=== PATIENT | male | born 1935 | race Caucasian/White ===

== ENCOUNTER 2017-07-13 16:01 | Emergency (ER) | payer MEDICARE, OTHER ==
[~2017-07-13] VITALS: Ht 177.8 cm; Wt 86.0 kg
[2017-07-13 16:14] LABS: HEMATOCRIT 47.1 % (39.2-51.8); HEMOGLOBIN 15.5 g/dL (13.7-18.0); WHITE BLOOD COUNT 10.7 x10^3/uL (3.4-10)
[2017-07-13 16:26] LABS: ASPARTATE AMINO TRANSFERASE 25 U/L (15-37); BLOOD UREA NITROGEN 26 mg/dL (7-18)
[2017-07-13] MEDS ORDERED: ALBU2.5V11 NEB (16:26)
[2017-07-13] MEDS ORDERED: BLOOD PRESSURE MED (16:26)
[2017-07-13] MEDS ORDERED: SODIUM CHLORIDE FLUSH 10ML SYR IVF ONE (16:30)
[2017-07-13] MEDS ORDERED: PLEASE ENTER ALLERGIES MC SCH ×2 (16:30)
[2017-07-13] MEDS ORDERED: ONDANSETRON 2MG/ML, 2ML IVPush ONE (16:30)
[2017-07-13] MEDS ORDERED: SODIUM CHLORIDE 0.9% 1,000ML IVBOLUS ONE ×2 (16:30)
[2017-07-13 16:31] LABS: IS PT STATUS REG ER OR PRE ER? YES
[2017-07-13 17:15] VITALS: BP 114/53
== END 2017-07-13 17:47 | disposition home or self-care (01) ==
LOC: ED 17:32
DX: R55 Syncope and collapse (principal); I95.0 Idiopathic hypotension; F10.120 Alcohol abuse with intoxication, uncomplicated; J44.9 Chronic obstructive pulmonary disease, unspecified
CPT/HCPCS: 36415; 71010; 80047; 80053; 80307; 83880; 84436; 84443; 84484; 85025; 85610; 85730; 93005; 96360; 99285; J7030

== ENCOUNTER → 2019-11-10 | Outpatient (CLI) | payer MEDICARE ==
[~2019-11-10] MED LIST: ALBU2.5V11 NEB; ALBU8.5H8 INH; BLOOD PRESSURE MED; DOXY100T PO; FINA5TAB4 PO; LOSA1TAB19 PO; METF500T17 PO; METH4TAB2 PO; TAMS-11 PO; TIOT4MIS3 IH; TIOT4MIS3 INH
== END | disposition home or self-care (01) ==
LOC: CFH 09:39
PROVIDERS: ATTEND Registered Nurse
DX: I71.2 Thoracic aortic aneurysm, without rupture (principal); J43.2 Centrilobular emphysema; I51.7 Cardiomegaly; M47.9 Spondylosis, unspecified
CPT/HCPCS: 71250

== ENCOUNTER 2020-04-01 09:20 | Emergency (ER) | payer MEDICARE ==
--- NOTE | 2020-04-01 09:27 | NUR ---
ekg in triage
--- NOTE | 2020-04-01 09:31 | NUR ---
[facility] [phone]
--- NOTE | 2020-04-01 10:00 | NUR ---
PT HAS CO SOB WORSENING THIS AM. DENIES CP. SLIGHT DRY COUGH. DENIES FEVERS. PT HX OF COPD. HOME 02 3L. CUSTOMER ORDER CLERK APPLIED. PT NOT IN RESP DISTRESS
[2020-04-01 10:43] LABS: MEAN CORPUSCULAR HEMOGLOBIN 30.8 pg (27.5-34.5); MEAN CORPUSCULAR HGB CONC 32.5 g/dL (33.2-36.2); MEAN CORPUSCULAR VOLUME 94.6 fL (81-97); MEAN PLATELET VOLUME 8.5 fL (7.4-10.4); PLATELET COUNT 255 x10^3/uL (130-400); RED BLOOD COUNT 4.35 x10^6/uL (4.38-5.82); RED CELL DISTRIBUTION WIDTH 14.2 % (9.4-14.8)
[2020-04-01 10:52] LABS: ALBUMIN 3.5 g/dL (3.4-5.0); ANION GAP 3 mmol/L (5-15); CALCIUM 9.6 mg/dL (8.5-10.1); CHLORIDE 108 mmol/L (98-107); CREATININE 1.22 mg/dL (0.7-1.3)
[2020-04-01 10:55] LABS: TROPONIN I 0.034 ng/mL (0.000-0.045)
[2020-04-01] MEDS ORDERED: ALBUTEROL/IPRATROPIUM 2.5MG/0.5MG, 3 ML NPPB ONE (11:00)
--- NOTE | 2020-04-01 11:00 | NUR ---
PT RESTING. VSS. LABS COMPLETE.
[2020-04-01 11:02] LABS: BASOPHILS # (AUTO) 0.01 x10^3/uL (0-0.1); BASOPHILS % (AUTO) 0 % (0-1); EOSINOPHILS # (AUTO) 0.02 x10^3/uL (0-0.4); EOSINOPHILS % (AUTO) 0 % (1-7); LYMPHOCYTES # (AUTO) 0.87 x10^3/uL (1-3.4); LYMPHOCYTES % (AUTO) 5 % (22-44); MD SCAN; MONOCYTES % (AUTO) 5 % (2-9); NEUTROPHILS # (AUTO) 17.23 x10^3/uL (1.8-6.8); NEUTROPHILS % (AUTO) 90 % (42-75)
[2020-04-01] MEDS ORDERED: ALBUTEROL/IPRATROPIUM 2.5MG/0.5MG, 3 ML ONE ×2 (11:06→11:51)
[2020-04-01 12:06] VITALS: BP 100/55
--- NOTE | 2020-04-01 12:09 | NUR ---
BREATHING TREATMENT IN PROCESS. VSS
--- NOTE | 2020-04-01 12:23 | NUR ---
Patient/Caregiver given discharge instructions and they have confirmed that they understand the instructions. Patient ambulatory with steady gait.
== END 2020-04-01 12:26 | disposition home or self-care (01) ==
LOC: ED 12:20
DX: J44.1 Chronic obstructive pulmonary disease with (acute) exacerbation (principal); Z20.828 Contact with and (suspected) exposure to other viral communicable diseases; R00.0 Tachycardia, unspecified; I10 Essential (primary) hypertension; R05 Cough; R09.81 Nasal congestion; Z87.891 Personal history of nicotine dependence
CPT/HCPCS: 36415; 71045; 80048; 82040; 83605; 83880; 84145; 84484; 85025; 87040; 93005; 99285; J7512; U0001

== ENCOUNTER → 2021-05-08 | Outpatient (CLI) | payer MEDICARE | END | disposition home or self-care (01) | LOC: CVU 10:34 | PROVIDERS: ATTEND Internal Medicine | DX: I06.2 Rheumatic aortic stenosis with insufficiency (principal); I11.9 Hypertensive heart disease without heart failure; E78.5 Hyperlipidemia, unspecified; I71.4 Abdominal aortic aneurysm, without rupture; J44.9 Chronic obstructive pulmonary disease, unspecified | CPT/HCPCS: 93306; 93356 ==

== ENCOUNTER 2021-06-04 09:31 | Outpatient (CLI) | payer MEDICARE ==
[2021-06-04] MEDS ORDERED: OMNIPAQUE 350 MG/ML, 100ML BOTTLE ONE (10:37)
== END 2021-06-04 23:59 | disposition home or self-care (01) ==
LOC: CVU 09:31 → RAD 23:59
PROVIDERS: ATTEND Internal Medicine Cardiovascular Disease
DX: Z01.810 Encounter for preprocedural cardiovascular examination (principal); I65.23 Occlusion and stenosis of bilateral carotid arteries; R06.02 Shortness of breath; I35.0 Nonrheumatic aortic (valve) stenosis; I35.8 Other nonrheumatic aortic valve disorders; J43.2 Centrilobular emphysema; M51.36 Other intervertebral disc degeneration, lumbar region
CPT/HCPCS: 71275; 74174; 93880; Q9967

== ENCOUNTER 2021-06-25 06:11 | Day surgery (SDC) | payer MEDICARE ==
[~2021-06-25] VITALS: Ht 177.8 cm; Wt 77.4 kg
[2021-06-25] MEDS ORDERED: trelegy INH (07:14)
[2021-06-25] MEDS ORDERED: vitamin d3 PO (07:14)
[2021-06-25] MEDS ORDERED: albuterol inhaler INH (07:14)
[2021-06-25] MEDS ORDERED: TIZA4CAP PO (07:14)
[2021-06-25] MEDS ORDERED: LOSA100T14 PO (07:14)
[2021-06-25] MEDS ORDERED: FINA5TAB4 PO (07:14)
[2021-06-25] MEDS ORDERED: ATOR40TA78 PO (07:14)
[2021-06-25 07:16] VITALS: BP 158/75
[2021-06-25] MEDS ORDERED: SODIUM CHLORIDE 0.9% 1,000 ML IV SCH (07:30)
[2021-06-25] MEDS ORDERED: FLUMAZENIL 0.1 MG/1 ML, 5ML ONE (08:23)
[2021-06-25] MEDS ORDERED: FENTANYL PF 100 MCG/2ML ONE (08:23)
[2021-06-25] MEDS ORDERED: MIDAZOLAM 1 MG/ML, 5ML ONE (08:23)
[2021-06-25] MEDS ORDERED: NALOXONE 1 MG/ML, 2ML ONE (08:24)
== END 2021-06-25 12:57 | disposition home or self-care (01) ==
LOC: OUT 06:11 → EDSTATUS 08:00 → OUT 12:57
PROVIDERS: ATTEND Internal Medicine
DX: R91.8 Other nonspecific abnormal finding of lung field (principal); J84.10 Pulmonary fibrosis, unspecified; J98.11 Atelectasis; J44.9 Chronic obstructive pulmonary disease, unspecified; J96.11 Chronic respiratory failure with hypoxia; I35.0 Nonrheumatic aortic (valve) stenosis; I12.9 Hypertensive chronic kidney disease with stage 1 through stage 4 chronic kidney disease, or unspecified chronic kidney disease; N18.9 Chronic kidney disease, unspecified; Z79.899 Other long term (current) drug therapy; Z87.891 Personal history of nicotine dependence; Z99.81 Dependence on supplemental oxygen; Z81.1 Family history of alcohol abuse and dependence; Z82.3 Family history of stroke
CPT/HCPCS: 32408; 71045; 88305; 99156; 99157; C2613; J2250; J3010; J7030; 32400; 77012; J2310

== ENCOUNTER 2021-07-10 10:44 | Day surgery (SDC) | payer MEDICARE ==
[~2021-07-10] VITALS: Ht 177.8 cm; Wt 80.0 kg
[~2021-07-10 10:44] MED LIST changes: +ATOR40TA78 PO; +LOSA100T14 PO; +TIZA4CAP PO; +albuterol inhaler INH; +trelegy INH; +vitamin d3 PO
[2021-07-10] MEDS ORDERED: SODIUM CHLORIDE 0.9% 1,000 ML IV SCH ×2 (11:00→13:30)
[2021-07-10] MEDS ORDERED: MULT-658 PO (11:17)
[2021-07-10] MEDS ORDERED: LOSA100T14 PO (11:17)
[2021-07-10] MEDS ORDERED: FLUT1BLS3 IH (11:17)
[2021-07-10] MEDS ORDERED: TAMS-11 PO (11:17)
[2021-07-10] MEDS ORDERED: ATOR40TA PO (11:17)
[2021-07-10] MEDS ORDERED: ALBU90AE2 INH (11:17)
[2021-07-10] MEDS ORDERED: PLEASE ENTER HEIGHT AND WEIGHT MC SCH (11:30)
[2021-07-10 11:51] LABS: BASOPHILS % (AUTO) 1 % (0-1); EOSINOPHILS % (AUTO) 4 % (1-7); LYMPHOCYTES % (AUTO) 13 % (22-44); MEAN CORPUSCULAR HEMOGLOBIN 31.6 pg (27.5-34.5); MEAN CORPUSCULAR HGB CONC 33.2 g/dL (33.2-36.2); MONOCYTES % (AUTO) 8 % (2-9); NEUTROPHILS % (AUTO) 74 % (42-75); PLATELET COUNT 241 x10^3/uL (130-400); RED CELL DISTRIBUTION WIDTH 14.5 % (9.4-14.8)
[2021-07-10 12:00] LABS: ANION GAP 6 mmol/L (5-15); CALCIUM 10.6 mg/dL (8.5-10.1); CHLORIDE 105 mmol/L (98-107); CREATININE 1.08 mg/dL (0.7-1.3)
[2021-07-10] MEDS ORDERED: VERAPAMIL 2.5 MG/ML, 2ML ONE (12:00)
[2021-07-10] MEDS ORDERED: MIDAZOLAM 1 MG/ML, 5ML ONE (12:00)
[2021-07-10] MEDS ORDERED: FENTANYL PF 100 MCG/2ML ONE (12:00)
[2021-07-10] MEDS ORDERED: HEPARIN 1,000 UNITS/ML, 10ML ONE (12:01)
[2021-07-10] MEDS ORDERED: LIDOCAINE-MPF 1%, 5ML ONE (12:01)
[2021-07-10] MEDS ORDERED: NITROGLYCERIN 5 MG/ML, 10ML ONE (12:01)
== END 2021-07-10 15:50 | disposition home or self-care (01) ==
LOC: CACL 10:44
PROVIDERS: ATTEND Internal Medicine Cardiovascular Disease
DX: Z01.810 Encounter for preprocedural cardiovascular examination (principal); I35.0 Nonrheumatic aortic (valve) stenosis; I25.10 Atherosclerotic heart disease of native coronary artery without angina pectoris; I12.9 Hypertensive chronic kidney disease with stage 1 through stage 4 chronic kidney disease, or unspecified chronic kidney disease; N18.9 Chronic kidney disease, unspecified
CPT/HCPCS: 36415; 80048; 85025; 93454; 99156; C1769; C1894; J1644; J2250; J3010; Q9967

== ENCOUNTER 2021-07-11 16:22 | Inpatient (IN) | payer MEDICARE ==
[~2021-07-11] VITALS: Ht 177.8 cm; Wt 79.2 kg
[~2021-07-11 16:22] MED LIST changes: +ALBU90AE2 INH; +ATOR40TA PO; +FLUT1BLS3 IH; +MULT-658 PO
--- NOTE | 2021-07-11 16:30 | NUR ---
PT RAILS UP, CALL LIGHT WTHIN REACH. PT HOOKED UP TO MONITORING.
--- NOTE | 2021-07-11 16:30 | NUR ---
PT C/O SOB AND CALLED 911. 911 ON[facility]ENE DID A 12 LEAD EKG AND ACTIVATED A CODE STEMI DUE TO ST ELEVATION IN ANTERIOR LEADS. PT DENIES CP, N/V OR ALFARO . PT PIV BILATERAL FOREARMS, 18 GA. 324 ASA GIVEN CASER UP. PT ON 3 LPM VIA NC UPON ARRIVAL AND PT STATES HE IS ALWAYS ON O2 DUE TO COPD.
[2021-07-11] MEDS ORDERED: MIDAZOLAM 1 MG/ML, 2ML ONE (16:33)
[2021-07-11] MEDS ORDERED: BIVALIRUDIN 250 MG ONE (16:33)
[2021-07-11] MEDS ORDERED: LIDOCAINE 2%, 20ML ONE (16:33)
[2021-07-11] MEDS ORDERED: FENTANYL PF 100 MCG/2ML ONE (16:33)
[2021-07-11] MEDS ORDERED: NITROGLYCERIN 5 MG/ML, 10ML ONE (16:33)
[2021-07-11 16:41] LABS: MEAN CORPUSCULAR HEMOGLOBIN 31.2 pg (27.5-34.5); MEAN CORPUSCULAR HGB CONC 32.9 g/dL (33.2-36.2); MEAN PLATELET VOLUME 8.9 fL (7.4-10.4); PLATELET COUNT 218 x10^3/uL (130-400); RED BLOOD COUNT 3.77 x10^6/uL (4.38-5.82); RED CELL DISTRIBUTION WIDTH 14.1 % (9.4-14.8)
[2021-07-11 16:53] LABS: INTERNATIONAL NORMALIZED RATIO 1.1 (0.93-1.1); PROTHROMBIN TIME 11.7 Seconds (9.6-11.5)
[2021-07-11 16:58] LABS: TROPONIN I 0.065 ng/mL (0.000-0.045)
[2021-07-11 17:18] LABS: EOS#(MANUAL) 1.86 x10^3/uL (0.0-0.4); EOS% (MANUAL) 9 % (1-7); LYMPH#(MANUAL) 0.21 x10^3/uL (1-3.4); LYMPHS% (MANUAL) 1 % (22-44); MONOS#(MANUAL) 0.83 x10^3/uL (0.3-2.7); MONOS% (MANUAL) 4 % (2-9); REACTIVE LYMPHS # (MANUAL) 0.21 x10^3/uL (0-0); REACTIVE LYMPHS % (MANUAL) 1 % (0-0); SEGS% (MANUAL) 85 % (42-75)
[2021-07-11 17:19] LABS: <PLATELET ESTIMATE> ADEQUATE; <PLT MORPHOLOGY> NORMAL PLT MORPH; <RBC MORPHOLOGY> NORMAL
[2021-07-11] MEDS ORDERED: SODIUM CHLORIDE 0.9% 1,000ML IVBOLUS ONE (19:00)
--- NOTE | 2021-07-11 19:00 | NUR ---
Report from Jennifer ULRICH
[2021-07-11] MEDS ORDERED: SODIUM CHLORIDE FLUSH 10ML SYR IVF PRN (20:00)
[2021-07-11] MEDS ORDERED: CEFTRIAXONE 1,000 MG in DEXTROSE 5% 50 ML IVPB ONE (20:00)
--- NOTE | 2021-07-11 20:21 | NUR ---
Pt tolerated COVID swab well. Walked sample to LAB. Pt made aware of need for urine sample. VSS, WCTM
--- NOTE | 2021-07-11 20:24 | NUR ---
THROUGHPUT RN: [id number] TO REACH [facility] HOUSE SUP FOR PT TRANSFER ACCEPTANCE/DENIAL, CURRENTLY UNABLE TO REACH ANYONE AT THIS TIME
[2021-07-11] MEDS ORDERED: LORazepam 1MG TABLET PO PRN (21:30)
[2021-07-11] MEDS ORDERED: CEFTRIAXONE 1,000 MG in SODIUM CHLORIDE 0.9% 50 ML IVPB SCH (21:30)
[2021-07-11] MEDS ORDERED: GUAIFENESIN/DM 200-20MG, 10ML UDC PO PRN (21:30)
[2021-07-11] MEDS ORDERED: HEPARIN 5,000 UNITS/ML, 1ML ONE (22:06)
[2021-07-11] MEDS ORDERED: methylPREDNISolone SOD SUCC 40 MG/ML ONE (22:06)
[2021-07-11] MEDS: methylPREDNISolone SOD SUCC 40 MG/ML IVPush SCH (22:13)
[2021-07-11] MEDS: HEPARIN 5,000 UNITS/ML, 1ML SQ SCH (22:21)
[2021-07-11] MEDS ORDERED: AZITHROMYCIN 500 MG in SODIUM CHLORIDE 0.9% 250 ML IV SCH (22:30)
[2021-07-11 22:35] LABS: BASOPHILS % (AUTO) 0 % (0-1); EOSINOPHILS % (AUTO) 6 % (1-7); LYMPHOCYTES % (AUTO) 4 % (22-44); MEAN CORPUSCULAR HEMOGLOBIN 31.4 pg (27.5-34.5); MEAN CORPUSCULAR HGB CONC 32.7 g/dL (33.2-36.2); MEAN PLATELET VOLUME 9.1 fL (7.4-10.4); MONOCYTES % (AUTO) 7 % (2-9); NEUTROPHILS % (AUTO) 83 % (42-75); PLATELET COUNT 184 x10^3/uL (130-400); RED BLOOD COUNT 3.39 x10^6/uL (4.38-5.82); RED CELL DISTRIBUTION WIDTH 14.3 % (9.4-14.8)
--- NOTE | 2021-07-11 22:42 | NUR ---
Report to Jennifer ULRICH
[2021-07-11 22:53] LABS: ALBUMIN 2.9 g/dL (3.4-5.0); CALCIUM 8.8 mg/dL (8.5-10.1); CREATININE 1.32 mg/dL (0.7-1.3)
[2021-07-11 23:14] VITALS: BP 120/70
[2021-07-11 23:18] LABS: ALANINE AMINOTRANSFERASE 23 U/L (12-78); ALKALINE PHOSPHATASE 48 U/L (45-117); ANION GAP 5 mmol/L (5-15); BILIRUBIN,TOTAL 0.5 mg/dL (0.2-1.0); CHLORIDE 108 mmol/L (98-107); TOTAL PROTEIN 5.7 g/dL (6.4-8.2)
[2021-07-12 00:40] VITALS: BP 132/68
[2021-07-12] MEDS: methylPREDNISolone SOD SUCC 40 MG/ML IVPush SCH ×2 (04:59→08:41)
[2021-07-12] MEDS: HEPARIN 5,000 UNITS/ML, 1ML SQ SCH ×2 (05:29→13:02)
[2021-07-12 07:15] LABS: MICROSCOPIC NOT IND
[2021-07-12 07:55] VITALS: BP 139/62
[2021-07-12 08:10] LABS: TROPONIN I 0.016 ng/mL (0.000-0.045)
[2021-07-12] MEDS ORDERED: CEFTRIAXONE 1,000 MG in DEXTROSE 5% 50 ML IVPB SCH ×2 (08:29→21:30)
[2021-07-12] MEDS ORDERED: TAMSULOSIN 0.4 MG CAP.ER.24H PO SCH (09:00)
[2021-07-12] MEDS ORDERED: LOSARTAN 100 MG TAB PO SCH (09:00)
[2021-07-12] MEDS ORDERED: TEMPLATE NON-FORMULARY MED. (Fluticasone/Umeclidin/Vilanter (Trelegy Ellipta 100-62.5-25 IH SCH (09:00)
[2021-07-12] MEDS ORDERED: FLUTICASONE/VILANTEROL 200-25MCG/INH INH SCH (09:00)
[2021-07-12] MEDS ORDERED: PRED20TA PO (12:59)
[2021-07-12 13:00] VITALS: BP 167/69
[2021-07-12 13:08] VITALS: BP 162/72
[2021-07-12] MEDS ORDERED: ATORVASTATIN 40 MG TABLET PO SCH (22:30)
== END 2021-07-12 15:26 | disposition home or self-care (01) | DRG 192 ==
LOC: EDSEX 16:22 → EDBD 16:22 → MERGE 16:22 → ED 17:30 → EDIP 20:01 → 4EST 23:23
PROVIDERS: ADMIT Internal Medicine; ATTEND Family Medicine
PROC: 0T9B70Z Drainage of Bladder with Drainage Device, Via Natural or Artificial Opening (ICD-10-PCS; principal; 2021-07-12)
DX: J44.1 Chronic obstructive pulmonary disease with (acute) exacerbation (principal); E78.5 Hyperlipidemia, unspecified; F10.20 Alcohol dependence, uncomplicated; I12.9 Hypertensive chronic kidney disease with stage 1 through stage 4 chronic kidney disease, or unspecified chronic kidney disease; I35.0 Nonrheumatic aortic (valve) stenosis; Z20.822 Contact with and (suspected) exposure to COVID-19; N18.30 Chronic kidney disease, stage 3 unspecified; N40.0 Benign prostatic hyperplasia without lower urinary tract symptoms; Z87.891 Personal history of nicotine dependence; Z95.2 Presence of prosthetic heart valve; Z99.81 Dependence on supplemental oxygen
CPT/HCPCS: 36415; 36600; 71045; 80047; 80048; 80053; 81003; 82803; 83605; 84484; 85025; 85610; 85730; 87040; 87635; 93005; 93454; 96374; 96375; 99156; 99285; C1769; C1894; G0378; J0456; J0583; J0696; J1644; J2250; J3010; J2920; J7030; J7050; Q9967

== ENCOUNTER 2021-07-30 07:13 | Inpatient (IN) | payer MEDICARE ==
[~2021-07-30] VITALS: Ht 177.8 cm; Wt 72.3 kg
[~2021-07-30 07:13] MED LIST changes: +PRED20TA PO
[2021-07-30] MEDS ORDERED: ONDANSETRON 2MG/ML, 2ML IV PRN (07:30)
[2021-07-30 07:55] VITALS: BP 130/57
[2021-07-30] MEDS ORDERED: vit b12 (07:55)
[2021-07-30 07:59] LABS: BASOPHILS % (AUTO) 1 % (0-1); EOSINOPHILS % (AUTO) 3 % (1-7); LYMPHOCYTES % (AUTO) 11 % (22-44); MEAN CORPUSCULAR HEMOGLOBIN 31.2 pg (27.5-34.5); MEAN CORPUSCULAR HGB CONC 32.7 g/dL (33.2-36.2); MEAN PLATELET VOLUME 8.3 fL (7.4-10.4); MONOCYTES % (AUTO) 7 % (2-9); NEUTROPHILS % (AUTO) 78 % (42-75); PLATELET COUNT 274 x10^3/uL (130-400)
[2021-07-30 08:11] LABS: ALANINE AMINOTRANSFERASE 34 U/L (12-78); ALBUMIN 3.2 g/dL (3.4-5.0); ANION GAP 3 mmol/L (5-15); CALCIUM 9.4 mg/dL (8.5-10.1); CHLORIDE 109 mmol/L (98-107); CREATININE 1.13 mg/dL (0.7-1.3)
[2021-07-30 08:13] LABS: ALKALINE PHOSPHATASE 84 U/L (45-117); BILIRUBIN,TOTAL 0.9 mg/dL (0.2-1.0); TOTAL PROTEIN 6.6 g/dL (6.4-8.2)
[2021-07-30 08:19] LABS: INTERNATIONAL NORMALIZED RATIO 1.01 (0.93-1.1); PROTHROMBIN TIME 10.8 Seconds (9.6-11.5)
[2021-07-30] MEDS ORDERED: PROTAMINE SULFATE 10 MG/ML, 5ML ONE (08:51)
[2021-07-30] MEDS ORDERED: FENTANYL PF 250 MCG/5ML ONE (08:55)
[2021-07-30] MEDS ORDERED: ROCURONIUM 10MG/ML,5ML ONE (08:56)
[2021-07-30] MEDS ORDERED: PROPOFOL 10 MG/ML, 20ML ONE (08:56)
[2021-07-30] MEDS ORDERED: ONDANSETRON 2MG/ML, 2ML ONE (08:56)
[2021-07-30] MEDS ORDERED: DEXAMETHASONE 4 MG/ML, 1ML ONE (08:56)
[2021-07-30] MEDS ORDERED: CEFAZOLIN 1,000 MG ONE ×3 (08:56)
[2021-07-30] MEDS: TAMSULOSIN 0.4 MG CAP.ER.24H PO SCH (10:00)
[2021-07-30] MEDS ORDERED: hydrALAzine 20 MG/ML, 1ML IVPush PRN (10:00)
[2021-07-30] MEDS ORDERED: ALBUTEROL HFA 90 MCG/SPRAY INH PRN (10:00)
[2021-07-30] MEDS ORDERED: ASPIRIN 325 MG TABLET PO ONE (10:00)
[2021-07-30] MEDS: LOSARTAN 100 MG TAB PO SCH (10:00)
[2021-07-30] MEDS ORDERED: ASPIRIN 325 MG TABLET EC ONE (11:12)
[2021-07-30] MEDS ORDERED: LABETALOL 20 MG/4 ML IVPush PRN (12:30)
[2021-07-30] MEDS ORDERED: ACETAMINOPHEN 325 MG TABLET PO PRN (12:30)
[2021-07-30 19:03] VITALS: BP 125/70
[2021-07-30] MEDS ORDERED: ATORVASTATIN 40 MG TABLET PO SCH (21:00)
[2021-07-31 01:06] VITALS: BP 130/79
[2021-07-31 05:09] LABS: MEAN CORPUSCULAR HEMOGLOBIN 31.3 pg (27.5-34.5); MEAN CORPUSCULAR HGB CONC 32.9 g/dL (33.2-36.2); MEAN PLATELET VOLUME 8.3 fL (7.4-10.4); PLATELET COUNT 198 x10^3/uL (130-400); RED BLOOD COUNT 3.33 x10^6/uL (4.38-5.82); RED CELL DISTRIBUTION WIDTH 13.8 % (9.4-14.8)
[2021-07-31 05:12] LABS: ANION GAP 4 mmol/L (5-15); CALCIUM 9.3 mg/dL (8.5-10.1); CHLORIDE 109 mmol/L (98-107); CREATININE 1.16 mg/dL (0.7-1.3)
[2021-07-31 06:03] LABS: <RBC MORPHOLOGY> NORMAL; EOS#(MANUAL) 0.24 x10^3/uL (0.0-0.4); EOS% (MANUAL) 1 % (1-7); LYMPH#(MANUAL) 1.22 x10^3/uL (1-3.4); LYMPHS% (MANUAL) 5 % (22-44); MONOS#(MANUAL) 0.73 x10^3/uL (0.3-2.7); MONOS% (MANUAL) 3 % (2-9); SEGS% (MANUAL) 91 % (42-75)
[2021-07-31 06:04] LABS: <PLATELET ESTIMATE> ADEQUATE; <PLT MORPHOLOGY> NORMAL PLT MORPH
[2021-07-31] MEDS ORDERED: ASPIRIN 81 MG TABLET EC PO SCH (07:00)
[2021-07-31 07:49] VITALS: BP 130/74
[2021-07-31] MEDS: TAMSULOSIN 0.4 MG CAP.ER.24H PO SCH (08:33)
[2021-07-31] MEDS: LOSARTAN 100 MG TAB PO SCH (08:33)
[2021-07-31] MEDS ORDERED: ASPI81TA45 PO (11:55)
[2021-07-31] MEDS ORDERED: ACET325T26 PO (11:55)
[2021-07-31 13:15] VITALS: BP 138/72
== END 2021-07-31 13:50 | disposition home or self-care (01) | DRG 266 ==
LOC: ORIP 07:13 → 5SO 16:07
PROVIDERS: ADMIT Internal Medicine Cardiovascular Disease; ATTEND Internal Medicine Cardiovascular Disease
PROC: B3101ZZ Fluoroscopy of Thoracic Aorta using Low Osmolar Contrast (ICD-10-PCS; 2021-07-30)
PROC: B24BZZ4 Ultrasonography of Heart with Aorta, Transesophageal (ICD-10-PCS; 2021-07-30)
PROC: 02RF38Z Replacement of Aortic Valve with Zooplastic Tissue, Percutaneous Approach (ICD-10-PCS; principal; 2021-07-30 09:00)
DX: I35.0 Nonrheumatic aortic (valve) stenosis (principal); Z00.6 Encounter for examination for normal comparison and control in clinical research program; I50.33 Acute on chronic diastolic (congestive) heart failure; I13.0 Hypertensive heart and chronic kidney disease with heart failure and stage 1 through stage 4 chronic kidney disease, or unspecified chronic kidney disease; E78.5 Hyperlipidemia, unspecified; J44.9 Chronic obstructive pulmonary disease, unspecified; N18.9 Chronic kidney disease, unspecified; Z20.822 Contact with and (suspected) exposure to COVID-19; I27.20 Pulmonary hypertension, unspecified
CPT/HCPCS: 33361; 36415; 76937; 80048; 80053; 85025; 85610; 86850; 86900; 86923; 87635; 93005; 93306; 93355; C1760; C1769; C1894; G0378; J0690; J1100; J2405; J2704; J2720; J3010; Q9967